=== PATIENT | male | born 1995 ===

== ENCOUNTER 2018-01-13 22:45 | Emergency (ER) | payer SELFPAY ==
[2018-01-13 22:48] VITALS: BP 132/73; PULSE 94; RESP 16; TEMP 98; O2SAT 99
--- NOTE | 2018-01-14 00:18 | ED PDOC ---
HPI: Psych/Substance Abuse Time Seen by Provider: 01/13/18 23:39 Chief Complaint (Nursing): Alcohol Ingestion Chief Complaint (Provider): etoh History Per: EMS Additional History Per: EMS Additional Complaint(s): 22 y/o male brought in by EMS for evaluation of public alcohol intoxication. As per EMS, patient had witnessed fall and hit head. Patient awake, admits to drinking 4 whiskey drinks tonight; states he does not remember how he got here. HPI slightly limited due to patient's current state Past Medical History Reviewed: Historical Data, Nursing Documentation, Vital Signs Vital Signs: Last Vital Signs Temp 98.0 F 01/13/18 22:46 Pulse 94 H 01/13/18 22:46 Resp 16 01/13/18 22:46 BP 132/73 01/13/18 22:46 Pulse Ox 99 01/13/18 22:46 - Medical History PMH: No Chronic Diseases - Surgical History Surgical History: No Surg Hx - Family History Family History: States: No Known Family Hx - Allergies Allergies/Adverse Reactions: Allergies Allergy/AdvReac Type Severity Reaction Status Date / Time No Known Allergies Allergy Verified 01/13/18 22:46 Review of Systems ROS Statement: Except As Marked, All Systems Reviewed And Found Negative Physical Exam - Reviewed Nursing Documentation Reviewed: Yes Vital Signs Reviewed: Yes - Physical Exam Appears: Positive for: Well, Non-toxic, No Acute Distress (intoxicated, +AOB) Head Exam: Positive for: ATRAUMATIC, NORMAL INSPECTION, NORMOCEPHALIC Skin: Positive for: Normal Color Eye Exam: Positive for: Normal appearance ENT: Positive for: Normal ENT Inspection Cardiovascular/Chest: Positive for: Regular Rate, Rhythm Respiratory: Positive for: Normal Breath Sounds Gastrointestinal/Abdominal: Positive for: Normal Exam Extremity: Positive for: Normal ROM Neurologic/Psych: Positive for: Alert, Oriented (x2) - ECG O2 Sat by Pulse Oximetry: 99 - Progress ED Course And Treament: accucheck, CT head EXAM: CT Head Without Intravenous Contrast CLINICAL HISTORY: 22 years old, male; Injury or trauma; Fall; Initial encounter; Blunt trauma ( contusions or hematomas); Additional info: ETOH, head injury TECHNIQUE: Axial computed tomography images of the head/brain without intravenous contrast. All CT scans at this facility use at least one of these dose optimization techniques: automated exposure control; mA and/or kV adjustment per patient size (includes targeted exams where dose is matched to clinical indication); or iterative reconstruction. 322 images are submitted.Sagittal , axial and coronal MPR reformatted images are submitted. Axial images are submitted in brain and bone windows. COMPARISON: No relevant prior studies available. FINDINGS: Brain: Unremarkable. No hemorrhage. No significant white matter disease. No edema. Ventricles: Unremarkable. No ventriculomegaly. Bones/joints: Unremarkable. No acute fracture. Soft tissues: Unremarkable. Sinuses: There is air-fluid level in the right maxillary sinus. Patchy sinus disease. Mastoid air cells: Unremarkable. No mastoid effusion. Orbits: The globe and lens are intact. IMPRESSION: No evidence of an acute intracranial hemorrhage, midline shift or mass effect is identified. 1:00 Patient sleeping; no distress 2:30 Patient sleeping; no distress 4:00 Patient awake, alert, oriented x3. Ambulating steady gait Stable for discharge Disposition - Clinical Impression Clinical Impression: Acute alcohol intoxication - Patient ED Disposition Is Patient to be Admitted: No Counseled Patient/Family Regarding: Studies Performed, Diagnosis, Need For Followup - Disposition Disposition: Routine/Home Disposition Time: 04:00 Condition: STABLE Instructions: Alcohol Use - When Is Drinking a Problem? Print Language: KHMER
--- NOTE | 2018-01-14 08:28 | CT ---
Date of service: 01/14/2018 PROCEDURE: CT HEAD WITHOUT CONTRAST. HISTORY: etoh, head injury COMPARISON: None available. TECHNIQUE: Axial computed tomography images were obtained through the head/brain without intravenous contrast. Radiation dose: Total exam DLP = 800 mGy-cm. This CT exam was performed using one or more of the following dose reduction techniques: Automated exposure control, adjustment of the mA and/or kV according to patient size, and/or use of iterative reconstruction technique. FINDINGS: HEMORRHAGE: No intracranial hemorrhage. BRAIN: No mass effect or edema. No atrophy or chronic microvascular ischemic changes. VENTRICLES: Unremarkable. No hydrocephalus. CALVARIUM: Unremarkable. PARANASAL SINUSES: Right maxillary and right ethmoidal sinus inflammatory changes MASTOID AIR CELLS: Unremarkable as visualized. No inflammatory changes. OTHER FINDINGS: None. IMPRESSION: No intracranial hemorrhage, mass effect or midline shift. Incidental right-sided sinus disease Concordant results (preliminary interpretation) provided by [facility].
== END 2018-01-14 04:05 | disposition home or self-care (01) ==
LOC: H.ER 22:45
DX: F10.129 Alcohol abuse with intoxication, unspecified (principal)